=== PATIENT | male | born 1990 | race Two or more races ===

== ENCOUNTER 2024-10-31 19:35 | Emergency (ER) | payer MEDICAID, SELFPAY ==
[2024-10-31 19:44] VITALS: BP 122/86; PULSE 118; RESP 19; TEMP 37.3; O2SAT 98
--- NOTE | 2024-10-31 20:50 | XR_ITS ---
Examination: CT chest with intravenous contrast CT abdomen with intravenous contrast CT pelvis with intravenous contrast 2-D coronal and sagittal reconstructions Time of exam: October 31, 2024 10:20 PM Indications: Chest pain beginning 4 months ago abdominal pain and melena CTDI: vol (mGy) : 7.52 DLP: (mGycm): 529 Technique: Multiple axial images of the chest, abdomen and pelvis with intravenous contrast, 3.0 mm slice thickness. Images obtained post intravenous injection Isovue 370 60 cc. 2-D sagittal and coronal reconstructions. Low dose protocols were performed. One or more of the following dose reduction techniques were used; automated exposure control, adjustment of the mA and/or KV according to patient size, use of iterative reconstruction technique. Findings: No thoracic aortic aneurysm dilatation No pulmonary artery emboli on this non-CTA study No paratracheal tracheobronchial or bronchopulmonary adenopathy No focal liver or splenic lesions No gallstones No pancreatic or adrenal mass Abdominal aorta normal size Normal appendix Large amounts of stool throughout the colon Normal seminal vesicles No prostatomegaly Bladder intact Significant thickening the rectal wall Impression: No mediastinal lymphadenopathy No pneumonia or pulmonary edema Normal appendix Abundant stool throughout the entire colon Significant thickening of the rectal wall, differential would include proctitis, early rectal tumor less likely but not excluded
[2024-10-31 21:21] LABS: Collection Type, Urine Clean Catch; Squamous Epithelial Cell,Urine 0 /hpf (0-5)
[2024-10-31 21:22] LABS: Lactate (Lactic Acid) 1.7 mMol/L (0.4-2.0)
[2024-10-31 21:38] LABS: Basophils # (Auto) 0.1 Thou/mm3 (0.0-0.2); Basophils % (Auto) 1 % (0-2.5); Eosinophils # (Auto) 0.1 Thou/mm3 (0.0-0.5); Eosinophils % (Auto) 1 % (0-10); Hematocrit 42.6 % (41.0-53.0); Hemoglobin 14.4 g/dL (13.5-16.0); Immature Granulocytes % (Auto) 0 % (0-0); Immature Granulocytes Auto 0.03 Thou/mm3 (0.00-0.00); Lymphocytes # (Auto) 3.3 Thou/mm3 (1.0-4.8); Lymphocytes % (Auto) 29 % (10-50); Mean Corpuscular HGB Conc 33.8 g/dl (31.0-37.0); Mean Corpuscular Hemoglobin 28.4 pg (25.0-35.0); Mean Corpuscular Volume 84 fL (80-100); Monocytes # (Auto) 0.6 Thou/mm3 (0.0-0.8); Monocytes % (Auto) 5 % (0-12); Neutrophils # (Auto) 7.4 Thou/mm3 (1.8-7.7); Neutrophils % (Auto) 65 % (37-80); Nucleated Red Blood Cell % 0 /100 WBC (0); Platelet Count 349 Thou/mm3 (140-440); RDW Standard Deviation 35.9 fL (35.1-43.9); Red Blood Count 5.07 Miln/mm3 (4.50-5.90); White Blood Count 11.4 Thou/mm3 (3.8-10.6)
[2024-10-31 21:53] LABS: Alanine Aminotransferase 20 U/L (10-49); Anion Gap 11 (7-16); Aspartate Amino Transferase 22 U/L (0-34); BUN/Creatinine Ratio 8 Ratio (12-20); Bilirubin,Total 0.9 mg/dL (0.3-1.2); Blood Urea Nitrogen 8 mg/dL (9-23); Calcium 10.1 mg/dL (8.3-10.6); Calcium (Corrected) 10.1 mg/dL (8.5-10.1); Carbon Dioxide 24.4 mMol/L (20.0-31.0); Chloride 104 mMol/L (98-107); Globulin 2.4 gm/dL (2.3-3.5); Glucose 114 mg/dL (74-106); Osmolality,Calculated 276 (275-295); Sodium 139 mMol/L (136-145); Total Protein 7.4 gm/dL (5.7-8.2); eGFR > 60 See Note
[2024-10-31 21:54] LABS: Albumin/Globulin Ratio 2.1 (1.2-2.2); Alkaline Phosphatase 53 U/L (46-116); Lipase 32 U/L (12-53); Procalcitonin < 0.04 ng/ml (0.0-0.49)
[2024-10-31 21:55] LABS: Amphetamine/Methamp Scrn,U Negative (Negative); Barbiturate Screen,Urine Negative (Negative); Benzodiazepines Screen,Urine Negative (Negative); Benzoylecgonine Screen, Ur Negative (Negative); Fentanyl Screen,Urine Negative (Negative); Opiate Screen,Urine Negative (Negative); THC Screen,Urine Negative (Negative)
[2024-10-31 22:07] LABS: Bacteria,Urine Rare; Bilirubin,Urine Negative (Negative); Blood,Urine Negative (Negative); Clarity,Urine Clear (Clear/Hazy); Color,Urine Lt-Yellow (Lt Yel-Yel); Culture Indicated,Urine Not Indicated; Glucose, Urine Negative (Negative); Ketones,Urine Negative (Negative); Leukocyte Esterase,Urine Negative (Negative); Nitrite,Urine Negative (Negative); PH,Urine 6.5 (5.0-7.0); Protein,Urine Negative (Neg - Trace); RBC,Urine 3 /hpf (0-3); Specific Gravity,Urine 1.012 (1.001-1.035); Urobilinogen,Urine Negative mg/dL (0.0-1.0); WBC,Urine 2 /hpf (0-5)
--- NOTE | 2024-11-01 02:28 | PD.EDABDPN ---
ED Abdominal Pain RME/HPI General Chief Complaint: Abdominal Pain Stated complaint: MELENA, ABDOMINAL PAIN, CONTIPATION Time seen by provider: 10/31/24 20:49 Arrival date/time: 10/31/24 19:35 34M with no significant PMH presents to ED with 4 months of melena, lower ab pain, and constipation. Patient has been to multiple EDs with inconclusive results. Patient has pending outpatient GI appt. Limitations: no limitations Related Data Allergies Allergy/AdvReac Type Severity Reaction Status Date / Time No Known Allergies Allergy Verified 10/31/24 19:41 Review of Systems Review of Systems Systems Reviewed: All systems reviewed, normal except as documented Constitutional Constitutional: Reports system reviewed and no additional complaints, except as documented, Denies fever(s) and Denies headache(s) ENT Ears, Nose, Mouth, and Throat: Denies disequilibrium and Denies headache(s) Cardiovascular Cardiovascular: Reports system reviewed and no additional complaints, except as documented, Denies chest pain and Denies dyspnea Respiratory Respiratory: Reports system reviewed and no additional complaints, except as documented, Denies cough and Denies dyspnea Gastrointestinal Gastrointestinal: Reports system reviewed and no additional complaints, except as documented, Reports as per HPI, Reports abdominal pain, Reports constipation, Reports hematochezia, Reports melena, Denies nausea and Denies vomiting Neurologic Neurologic: Reports system reviewed and no additional complaints, except as documented, Denies confusion, Denies disequilibrium and Denies headache(s) Psychiatric Psychiatric: Denies confusion Past Medical History Past Medical History CARDIAC: Negative Cardiac Disorders RESPIRATORY: Negative Asthma GENITOURINARY: Negative Renal Disease ENDOCRINE: Negative Diabetes Mellitus Type 2 HEMATOLOGIC: Negative Sickle Cell Disease Social History SMOKING STATUS: Never smoker ED Exam General Limitations: Present no limitations General appearance: Present alert and in no apparent distress Head Head exam: Present atraumatic Eye Eye exam: Present normal appearance, PERRL and EOMI ENT ENT exam: Present normal exam, normal oropharynx and mucous membranes moist Neck Neck exam: Present normal inspection, full ROM and trachea midline Chest Chest inspection: Present normal inspection and symmetric chest wall rise Respiratory Respiratory exam: Present normal lung sounds bilaterally Cardiovascular Cardiovascular exam: Present regular rate, normal rhythm and normal heart sounds Abdominal Exam Abdominal exam: Present soft and normal bowel sounds Abdominal tenderness: Present LLQ and mild Extremities Exam Extremities exam: Present normal inspection and full ROM Back Exam Back exam: Present normal inspection and full ROM Neurological Exam Neurological exam: Present alert, oriented X3 and CN II-XII intact Psychiatric Psychiatric exam: Present normal affect and normal mood Skin Skin exam: Present warm, dry, intact and normal color Course Quality Measures none Orders Category Date Time Status CT Screening NOW Care 10/31/24 20:51 Completed Insert IV NOW Care 10/31/24 20:[address] chest abdomen pelvis w Stat Exams 10/31/24 20:50 Completed CBC Stat Lab 10/31/24 21:12 Completed CMP [Comprehensive Metabolic Panel] Stat Lab 10/31/24 21:12 Completed Drug Screen,Urine Stat Lab 10/31/24 21:05 Completed Lactate (Lactic Acid) Stat Lab 10/31/24 21:12 Completed Lipase Stat Lab 10/31/24 21:12 Completed Procalcitonin Stat Lab 10/31/24 21:12 Completed Urinalysis, C/S if Indicated Stat Lab 10/31/24 21:05 Completed Vital Signs Vital signs: Vital Signs Temperature 99.1 F 10/31/24 19:44 Pulse Rate 118 H 10/31/24 19:44 Respiratory Rate 19 10/31/24 19:44 Blood Pressure 122/86 H 10/31/24 19:44 Pulse Oximetry (%) 98 10/31/24 19:44 Oxygen Delivery Method Room Air 10/31/24 19:44 O2 at 98% on RA and WNLs Abdominal Pain MDM MDM Narrative MDM Narrative:: 34M with no significant PMH presents to ED with 4 months of melena, lower ab pain, and constipation. Patient has been to multiple EDs with inconclusive results. Patient has pending outpatient GI appt. Physical exam reveals LLQ tenderness. Patient is afebrile, calm, and alert. No leukocytosis or anemia. CMP unremarkable. Lipase normal. Procal/lactate normal. CT shows proctitis with possible early cancer mass. Spoke to Dr. Ivan, GI who states patient does not need admission criteria for emergent colonoscopy. Extensive business and financial counsel given, especially why he keeps getting the same results at every ED. Patient data External records reviewed:: None Clinical information provided by:: patient Social determinants that could affect healthcare access:: none Patient has the following chronic illnesses:: none How is presenting disease/condition affected by chronic disease/condition?: no chronic disease Evaluation data The following diagnostics were reviewed and interpreted by me:: lab results and radiology exam(s) Lab and/or radiology exams considered but not ordered:: ordered Interpretation Summary: above Medications / Prescriptions Medications or Prescriptions considered but not ordered:: not ordered Medication administrations:: n/a Consultations Consultation(s) initiated? (list below): Yes Diagnosis Differential diagnosis abdominal pain: abdominal pain, acute appendicitis, calculus of kidney, constipation, diverticulitis, gastroenteritis, pancreatitis and small bowel obstruction Most likely diagnosis given after review of the tests above:: ab pain Admission Indicated Admission indicated?: not indicated Admission Request Was there a request for admission?: No Disposition Plan Disposition Plan: Discharge Discharge Attestation Discharge Attestation: The patient and all family members were given an opportunity to ask questions and understood the discharge instructions. Discharge instructions specifically effects, indications for sooner follow up or return to the emergency department, and the expected course of current diagnosis. Patient condition: Stable Discharge Plan Plan Patient Disposition: HOME (Self Care) Disposition Comment: Stable Prescriptions/Referrals Referrals: Ruddy Rice PA-C [Primary Care Provider] - In 1 week Problem List Clinical Impression: Abdominal pain Patient/Caregiver Discharge Instructions Additional Instructions: Please follow-up with PCP within 24-48 hours and return immediately if symptoms worsen. Good luck with GI specialist. Print Language: Argentine Stand Alone Forms: Patient Portal Info Letter [facility]I/[facility] Supervising Physician NAOMIE Supervising Physician: Dr. Holman
== END 2024-11-01 01:07 | disposition home or self-care (01) ==
PROVIDERS: Physician Assistant; Emergency Provider Emergency Medicine; PCP Family Medicine
DX: R10.30 Lower abdominal pain, unspecified (principal)
CPT/HCPCS: 36415; 71260; 74177; 80053; 80307; 81001; 83605; 83690; 84145; 85025; 99284; A4649; Q9967